=== PATIENT | male | born 1940 ===

== ENCOUNTER 2019-06-01 11:38 | Inpatient (IN) | payer OTHER ==
[~2019-06-01] VITALS: Ht 7.6 cm; Wt 5.0 kg
[2019-06-01] MEDS ORDERED: HYDRALAZINE HCL25 MG PO (12:46)
[2019-06-01] MEDS ORDERED: AVAPRO150 MG PO (12:47)
[2019-06-01] MEDS ORDERED: ELIQUIS2.5 MG PO (12:47)
[2019-06-01] MEDS ORDERED: CARDIZEM30 MG PO (12:48)
--- NOTE | 2019-06-01 12:48 | NUR ---
PACIENTE MASCULINO ALERTA Y ORIENTADO CON DIFICULTAD RESPIRATORIA EDEMA EN AMBAS PIERNAS, ESCROTO INFLAMADO. LOS SINTOMAS ESTAN PRESENTE DESDE HACE 21 ELLISON. EN 2018 PRESENTO UN ATAQUE CARDIACO COPNGESTIVO.
--- NOTE | 2019-06-01 15:21 | NUR ---
PTE ES EVALUADO POR DR. HINOJOSA QUIEN ORDENA TRATAMIENTO. SE EDUCA A PTE SOBRE ORDENES MEDICAS Y REFIERE COMPRENDER. SE CANALIZA Y SE COLECTAN MUESTRAS DE LABORATORIO BAJO MEDIDAS ASEPTICAS Y SE ADMINISTRA MEDICAMENTO CORNELIA ORDEN MEDICA EL CUAL PTE TOLERA. SE PROVEE ENVASE PARA COLECTA DE ORINA.
== END 2019-06-12 07:05 | disposition designated cancer center or children's hospital (05) | DRG 291 ==
LOC: ER 11:38 → ICU-2 17:28 → SEC-K 06-04 20:18 → MEDI 06-04 20:38
PROVIDERS: ADMIT Internal Medicine
PROC: B246ZZZ Ultrasonography of Right and Left Heart (ICD-10-PCS; principal; 2019-06-01)
PROC: 4A033R1 Measurement of Arterial Saturation, Peripheral, Percutaneous Approach (ICD-10-PCS; 2019-06-01)
PROC: 0T9B70Z Drainage of Bladder with Drainage Device, Via Natural or Artificial Opening (ICD-10-PCS; 2019-06-01)
PROC: 4A12X4Z Monitoring of Cardiac Electrical Activity, External Approach (ICD-10-PCS; 2019-06-04)
DX: I13.0 Hypertensive heart and chronic kidney disease with heart failure and stage 1 through stage 4 chronic kidney disease, or unspecified chronic kidney disease (principal); I50.43 Acute on chronic combined systolic (congestive) and diastolic (congestive) heart failure; N18.2 Chronic kidney disease, stage 2 (mild); I27.22 Pulmonary hypertension due to left heart disease; I08.3 Combined rheumatic disorders of mitral, aortic and tricuspid valves; I48.0 Paroxysmal atrial fibrillation; N39.8 Other specified disorders of urinary system; Z79.01 Long term (current) use of anticoagulants